=== PATIENT | female | born 1990 ===

== ENCOUNTER 2021-08-18 09:45 | Inpatient (IN) | payer OTHER ==
[~2021-08-18] VITALS: Ht 162.6 cm; Wt 81.6 kg
== END 2021-08-22 15:56 | disposition home or self-care (01) | DRG 743 ==
LOC: O/R 08-19 06:00 → OB/GYN 08-19 09:45
PROVIDERS: ADMIT Specialist; ATTEND Specialist
PROC: 0UT10ZZ Resection of Left Ovary, Open Approach (ICD-10-PCS; 2021-08-19)
PROC: 0UB10ZZ Excision of Left Ovary, Open Approach (ICD-10-PCS; 2021-08-19)
PROC: 3E1M38Z Irrigation of Peritoneal Cavity using Irrigating Substance, Percutaneous Approach (ICD-10-PCS; 2021-08-19)
PROC: 0UT60ZZ Resection of Left Fallopian Tube, Open Approach (ICD-10-PCS; principal; 2021-08-19 17:30)
DX: D27.1 Benign neoplasm of left ovary (principal); Z20.822 Contact with and (suspected) exposure to COVID-19